=== PATIENT | female | born 1985 | race African-American/Black ===

== ENCOUNTER 2024-06-19 12:57 | Emergency (ER) | payer BC, OTHER ==
[~2024-06-19] VITALS: Ht 160 cm; Wt 79.0 kg
[~2024-06-19 12:57] MED LIST: SULF400T11
--- NOTE | 2024-06-19 13:11 | ED.PDOC ---
HPI Comments 38 year old female presents to the ED with chief complaint of palpitations. Patient reports that she has been on new medication Wellbutrin for weight loss along with Lisinopril for recent HTN that was induced by another medication. Patient relays that she started to experience heart palpitations/racing at around 11am today. Patient notes she is recovering from a recent total hysterectomy performed on 06/07. Patient denies any N/V/D, chest pain, SOB, dizziness, headache, fever, or chills. Time Seen by MD: 13:07 Primary Care Provider: BE Reviewed Notes: Nurses Notes, Medications, Allergies Allergies: Coded Allergies: NO KNOWN ALLERGIES (Unverified , 08/15/11) Home Meds Reported Medications Sulfamethoxazole-Trimethoprim (Bactrim) 1 Tab Tab 08/15/11 Information Source: Patient Mode of Arrival: Ambulatory Severity: Mild Timing: Hours Duration: Since onset Prehospital treatment: None Onset: At Rest Cardiac Risk Factors: HTN PE Risk Factors: None History of: None Associated Signs and Symptoms: Palpitations Past Medical History PAST MEDICAL HISTORY: HTN Surgical History: Hysterectomy 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 MECHANIC Hx Family History Family History: Reviewed,noncontributory to illness, Family hx of HTN Social History Smoker: Non-Smoker Alcohol: Occasionally Drugs: Denies Drug Use Lives In: Home Constitutional: denies: chills, diaphoresis, fatigue, fever, malaise, sweats, weakness, others EENTM: denies: blurred vision, double vision, ear bleeding, ear discharge, ear drainage, ear pain, ear ringing, eye pain, eye redness, hearing loss, mouth pain, mouth swelling, nasal discharge, nose bleeding, nose congestion, nose pain, photophobia, tearing, throat pain, throat swelling, voice changes, others Respiratory: denies: cough, hemoptysis, orthopnea, SOB at rest, shortness of breath, SOB with excertion, stridor, wheezing, others Cardiovascular: reports: palpitations; denies: chest pain, dizzy spells, diaphoresis, Dyspnea on exertion, edema, irregular heart beat, left arm pain, lightheadedness, PND, syncope, others Gastrointestinal: denies: abdomen distended, abdominal pain, blood streaked bowels, constipated, diarrhea, dysphagia, difficulty swallowing, hematemesis, melena, nausea, poor appetite, poor fluid intake, rectal bleeding, rectal pain, vomiting, others Genitourinary: denies: abnormal vagina bleeding, burning, dyspareunia, dysuria, flank pain, frequency, hematuria, incontinence, pain, , vagina discharg e, urgency, others Neurological: denies: dizziness, fainting, headache, left sided numbness, left sided weakness, numbness, paresthesia, pre-existing deficit, right sided numbness, right sided weakness, seizure, speech problems, tingling, tremors, weakness, others Musculoskeletal: denies: back pain, gout, joint pain, joint swelling, muscle pain, muscle stiffness, neck pain, others Integumetry: denies: bruises, change in color, change in hair/nails, dryness, laceration, lesions, lumps, rash, wounds, others Allergic/Immunocompromised: denies: Difficulty Healing, Frequent Infections, Hives, Itching, others Hematologic/Lymphatic: denies: anemia, blood clots, easy bleeding, easy bruising, swollen glands, others Endocrine: denies: excessive hunger, excessive sweating, excessive thirst, excessive urination, flushing, intolerance to cold, intolerance to heat, unexplained weight gain, unexplained weight loss, others Psychiatric: denies: anxiety, bipolar disorder, depression, hopeless, panic d isorder, schizophrenia, sleepless, suicidal, others All Other Systems: Reviewed and Negative Physical Exam General Appearance: No Apparent Distress HEENT: Normal ENT Inspection, Pharynx Normal, TMs Normal Neck: Full Range of Motion, Non-Tender, Normal, Normal Inspection Respiratory: Chest Non-Tender, Lungs Clear, No Accessory Muscle Use, No Respiratory Distress, Normal Breath Sounds Cardiovascular: No Edema, No JVD, No Murmur, No Gallop, Normal Peripheral Pulses, Regular Rate/Rhythm Breast Exam: Deferred Gastrointestinal: No Organomegaly, Non Tender, No Pulsatile Mass, Normal Bowel Sounds, Soft Genitalia: Deferred Pelvic: Deferred Rectal: Deferred Extremities: No calf tenderness, Normal capillary refill, Normal inspection, Normal range of motion, Non-tender, No pedal edema Musculoskeletal : Apperance: Normal Neurologic: Alert, recreation therapist II-XII nml as Tested, No Motor Deficits, Normal Affect, Normal Mood, No Sensory Deficits Cerebellar Function: Normal Reflexes: Normal Skin: Dry, Normal Color, Warm Lymphatic: No Adenopathy EKG EKG : Pulse Rate (adult): 107 E[place]hardt: Normal Cardiac Rhythm: ST Block: None ST: Nonsp Was a procedure done? Was a procedure done?: No CP Differential Dx Differential Diagnosis: Angina, IA, Pulmonary Embolus Differential Diagnosis: CHF Differential Diagnosis: Pericarditis X-Ray, Labs, Meds, VS Vital Signs Date Time Temp Pulse Resp B/P (MAP) Pulse Ox O2 Delivery O2 Flow Rate FiO2 06/19/24 15:30 98.7 98 17 98 98.7 06/19/24 15:30 98 16 98 Room Air 06/19/24 14:16 87 06/19/24 13:46 107 06/19/24 13:00 99.2 110 18 123/77 (92) 98 99.2 Lab Test 06/19/24 14:14 06/19/24 13:27 06/19/24 13:15 Range/Units Troponin I High Sensitivity 4 < 3 L </=34 ng/L White Blood Count 10.7 4.4-10.8 10^3/uL Red Blood Count 5.12 4.0-5.20 10^6/uL Hemoglobin 13.2 12.2-16.2 g/dL Hematocrit 41.7 36.0-46.0 % Mean Corpuscular Volume 81.5 80.0-100.0 fL Mean Corpuscular Hemoglobin 25.8 L 28.0-32.0 pg Mean Corpuscular Hemoglobin Concent 31.6 L 32.0-36.0 g/dL Red Cell Distribution Width 15.5 H 11.8-14.3 % Platelet Count 361 140-450 10^3/uL Mean Platelet Volume 7.9 6.9-10.8 fL Neutrophils (%) (Auto) 74.7 37.0-80.0 % Lymphocytes (%) (Auto) 18.7 10.0-50.0 % Monocytes (%) (Auto) 5.0 0.0-12.0 % Eosinophils (%) (Auto) 1.1 0.0-7.0 % Basophils (%) (Auto) 0.5 0.0-2.0 % Neutrophils # (Auto) 8.0 1.6-8.6 10 ^3/uL Lymphocytes # (Auto) 2.0 0.4-5.4 10 ^3/uL Monocytes # (Auto) 0.5 0-1.3 10 ^3/uL Eosinophils # (Auto) 0.1 0-0.8 10 ^3/uL Basophils # (Auto) 0.1 0-0.2 10 ^3/uL Nucleated Red Blood Cells 0.0 % D-Dimer, Quantitative 1.37 H 0.0-0.49 mg/L FEU Sodium Level 138 136-145 mmol/L Potassium Level 4.0 3.5-5.1 mmol/L Chloride Level 101 98-107 mmol/L Carbon Dioxide Level 27 20-31 mmol/L Anion Gap 10 5-15 Blood Urea Nitrogen 13 9-23 mg/dL Creatinine 0.72 0.550-1.02 mg/dL Glomerular Filtration Rate Calc 108 >90 mL/min BUN/Creatinine Ratio 18.1 10.0-20.0 Serum Glucose 95 74-106 mg/dL Calcium Level 10.4 8.7-10.4 mg/dL Magnesium Level 1.7 1.6-2.6 mg/dL Urine Color Colorless Yellow Urine Clarity Clear Clear Urine pH 6.5 5.0-9.0 Urine Specific [place] 1.008 1.001-1.035 Urine Protein Negative Negative Urine Ketones Negative Negative Urine Blood Trace H Negative /uL Urine Nitrite Negative Negative Urine Bilirubin Negative Negative Urine Urobilinogen Normal Negative mg/dL Urine Leukocyte Esterase 2+ Negative /uL Urine RBC <1 0 - 4 /hpf Urine Microscopic WBC 7 H 0-5 /HPF Urine Squamous Epithelial Cells Few <5 /hpf Urine Bacteria None seen None Seen /hpf Urine Yeast (Budding) Occasional None Seen /hpf Urine Glucose Normal Normal mg/dL Current Medications Medications (Trade) Dose Ordered Sig/Christian Route Start Time Stop Time Status Last Admin Sodium Chloride 1,000 ml @ 1,000 mls/hr Q1H ONCE IV 06/19/24 14:00 06/19/24 14:59 DC 06/19/24 15:25 CBC is within normal limits The D-dimer is elevated 1.37 The urine test is positive for UTI The patient was given IV normal saline at 1 L bolus Because of the elevated D-dimer we did a CAT scan of the chest to rule out PE and shows: IMPRESSION: 1. Limited by poor contrast opacification of the pulmonary arteries. 2. No large central pulmonary embolism. 3. No acute thoracic finding. 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 4. Subtle early arterial enhancement in the liver near the IVC of unclear significance. This could be further evaluated with MRI of the abdomen with c ontrast. HS:Y At this time, the patient was being discharged and will follow up with the primary care doctor The patient will return to the emergency department's condition worsens The patient was given a prescription of Cipro for the infection Images Reviewed?: Images reviewed and evaluated by me Time of 1ST Reevaluation: 16:38 Reevaluation 1ST: Improved Patient Education/Counseling: Diagnosis, Treatment, Prognosis, Need For Follow Up Family Education/Counseling: No Family Present Additional Information -Reviewed patient's previous visit(s): 08/15/11 for chest abscess - The following tests were ordered, and results were reviewed by me: CBC, BMP, Troponin, Magnesium, UA, D-Dimer - Additional information was gathered from interviewing the following ind ependent Historian: None - I reviewed and agreed with the following test results read by other provider: None - I discussed treatments and results with medical personnel and: patient Comprehensive systems review obtained and negative except for what is stated in the HPI. Departure 1 Departure Time of Disposition: 16:39 Impression: Primary Impression: Acute UTI Additional Impression: Palpitations Disposition: 01 HOME / SELF CARE / HOMELESS Condition: Fair Discharged With: Self Critical Care Note Critical Care Time?: No Stability Stability form required: No Heart Score Heart Score: Heart Score Response (Comments) Value History Moderate Suspicious 1 EKG Normal 0 Age <45 0 Risk Factors 1 or 2 risk factors 1 Troponin N/A 0 Total 2 I personally scribed for COMFORT PAYAN MD ([email or web address]) on 06/19/24 at 13:11. Electronically submitted by Jared Bradley ([email or web address]). COMFORT PAYAN MD Jun 19, 2024 13:11
[2024-06-19 13:35] LABS: Basophils # (auto) 0.1 10 ^3/uL (0-0.2); Eosinophils # (auto) 0.1 10 ^3/uL (0-0.8); Monocytes # (auto) 0.5 10 ^3/uL (0-1.3); White Blood Cell 10.7 10^3/uL (4.4-10.8)
[2024-06-19 13:36] LABS: Basophils % (auto) 0.5 % (0.0-2.0); Eosinophils % (auto) 1.1 % (0.0-7.0); Hematocrit 41.7 % (36.0-46.0); Hemoglobin 13.2 g/dL (12.2-16.2); Lymphocytes % (auto) 18.7 % (10.0-50.0); Mean Corpuscular Hemoglobin 25.8 pg (28.0-32.0); Mean Corpuscular Hgb Conc. 31.6 g/dL (32.0-36.0); Mean Corpuscular Volume 81.5 fL (80.0-100.0); Neutrophils % (auto) 74.7 % (37.0-80.0); Platelet Count (auto) 361 10^3/uL (140-450); Red Blood Cells 5.12 10^6/uL (4.0-5.20); Red Cell Distribution Width 15.5 % (11.8-14.3)
[2024-06-19 13:38] LABS: Urine Bacteria None Seen /hpf (None Seen)
[2024-06-19 13:44] LABS: Chloride 101 mmol/L (98-107); Sodium 138 mmol/L (136-145)
[2024-06-19 13:45] LABS: Anion Gap 10 (5-15); Carbon Dioxide 27 mmol/L (20-31)
[2024-06-19 13:46] LABS: Calcium 10.4 mg/dL (8.7-10.4)
[2024-06-19 13:47] LABS: Urine Blood TRACE /uL (Negative); Urine Budding Yeast OCCASIONAL /hpf (None Seen); Urine Clarity Clear (Clear); Urine Color Colorless (Yellow); Urine Protein, UAD Negative (Negative); Urine Specific Gravity 1.008 (1.001-1.035); Urine Squamous Epithelial Cell FEW /hpf (<5); Urine Urobilinogen Normal (Negative); Urine WBC 7 /HPF (0-5); Urine pH 6.5 (5.0-9.0)
[2024-06-19 13:50] LABS: BUN/Creatinine Ratio 18.1 (10.0-20.0); Blood Urea Nitrogen 13 mg/dL (9-23); Glucose 95 mg/dL (74-106)
[2024-06-19 13:51] LABS: Magnesium 1.7 mg/dL (1.6-2.6)
--- NOTE | 2024-06-19 14:18 | ECG ---
[facility] Test Date: 2024-06-19 Test Time: 14:16:39 Pat Name: BEN HANSON Department: ED Room: Gender: F Publicity Agent: SHANNON : 1985 Requested By: COMFORT PAYAN Order Number: [id number] Reading MD: Rajan Garcia Measurements Intervals [place] Rate: 87 P: 27 AR: 119 QRS: 83 QRSD: 94 T: 24 QT: 353 QTc: 425 Interpretive Statements Sinus rhythm Borderline short AR interval Borderline T abnormalities, anterior leads Baseline wander in lead(s) III,aVF Electronically Signed On 06-20-2024 20:55:33 PDT by Rajan Garcia Please click the below link to view image of tracing.
[2024-06-19] MEDS: SODIUM CHLORIDE 0.9% 1,000 ML IV ONE (15:25)
[2024-06-19] MEDS: IOHEXOL 350 MG/ML 100ML IJ ONE (16:03)
--- NOTE | 2024-06-19 16:27 | DVH ---
CTA Chest with intravenous contrast INDICATION: Palpitations COMPARISON: None TECHNIQUE: Multidetector spiral CTA of the chest was performed of the chest with intravenous contrast . PULMONARY ANGIOGRAPHY PROTOCOL was utilized using a bolus-tracking technique centered on the main p ulmonary artery. Axial, coronal and sagittal multiplanar and MIP reformats were performed. CONTRAST: Type of contrast: Omni 300 Contrast injected: 70 ml Radiation dose : Chest: CTDI volume is 21 mGy. Dose-length product is 708 mGy*cm The dose indicators for CT are the volume computed Tomography (CT) dose Index (CTDIvol) and the dose Length product (DLP), and are measured in units of mGy and mGy-cm, respectively. These indicators are not patient dose, but values generated from the CT scanner acquisition factors. The report includes radiation exposure data for exposures received during this examination. Findings: Pulmonary artery: Limited by poor contrast opacification of the pulmonary arteries. No large central or large segmental pulmonary embolism. Lower neck: Normal thyroid. Lungs: No focal consolidation, pleural effusion or pneumothorax. Heart/Vascular Structures: Normal heart size. No pericardial effusion. Lymph Nodes: No adenopathy Pleura: No pleural effusion or significant pneumothorax. Musculoskeletal: Deformity of the left 4th rib. Soft tissues: Normal. Upper abdomen: Subtle early arterial enhancement in the liver near the IVC. IMPRESSION: 1. Limited by poor contrast opacification of the pulmonary arteries. 2. No large central pulmonary embolism. 3. No acute thoracic finding. 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 4. Subtle early arterial enhancement in the liver near the IVC of unclear significance. This could be further evaluated with MRI of the abdomen with contrast. HS:Y
[2024-06-19] MEDS ORDERED: CIPR-173 PO (16:40)
[2024-06-19 16:58] VITALS: BP 126/68; PULSE 76; RESP 16; TEMP 98.7; O2SAT 97
--- NOTE | 2024-06-20 06:42 | ECG ---
[facility] Test Date: 2024-06-19 Test Time: 13:12:18 Pat Name: BEN HANSON Department: ER Room: Gender: F [place]ogs[place] Filler: GP : 1985 Requested By: COMFORT PAYAN Order Number: [id number] Reading MD: Rajan Garcia Measurements Intervals [place] Rate: 107 P: 71 HI: 105 QRS: 89 QRSD: 92 T: 10 QT: 316 QTc: 422 Interpretive Statements Sinus tachycardia Probable left atrial enlargement Borderline repolarization abnormality Baseline wander in lead(s) V1,V2 Electronically Signed On 06-20-2024 20:55:14 PDT by Rajan Garcia Please click the below link to view image of tracing.
== END 2024-06-19 17:49 | disposition home or self-care (01) ==
LOC: ER 12:57
DX: N39.0 Urinary tract infection, site not specified (principal); R00.2 Palpitations; I10 Essential (primary) hypertension; Z90.710 Acquired absence of both cervix and uterus
CPT/HCPCS: 36415; 71275; 80048; 81001; 83735; 84484; 85025; 85379; 93005; 96360; 96361; 99285; J7030; Q9967

== ENCOUNTER 2024-06-21 00:42 | Emergency (ER) | payer OTHER ==
[~2024-06-21] VITALS: Ht 160 cm; Wt 79.2 kg
[~2024-06-21 00:42] MED LIST changes: +CIPR-173 PO
[2024-06-21 01:16] LABS: Basophils # (auto) 0.1 10 ^3/uL (0-0.2); Eosinophils # (auto) 0.3 10 ^3/uL (0-0.8); Hemoglobin 12.5 g/dL (12.2-16.2); Lymphocytes # (auto) 4.5 10 ^3/uL (0.4-5.4); White Blood Cell 12.8 10^3/uL (4.4-10.8)
[2024-06-21 01:17] LABS: Basophils % (auto) 0.8 % (0.0-2.0); Eosinophils % (auto) 2.3 % (0.0-7.0); Hematocrit 38.3 % (36.0-46.0); Lymphocytes % (auto) 35.1 % (10.0-50.0); Mean Corpuscular Hemoglobin 26.3 pg (28.0-32.0); Mean Corpuscular Hgb Conc. 32.6 g/dL (32.0-36.0); Mean Corpuscular Volume 80.7 fL (80.0-100.0); Monocytes # (auto) 0.6 10 ^3/uL (0-1.3); Monocytes % (auto) 4.6 % (0.0-12.0); Neutrophils # (auto) 7.3 10 ^3/uL (1.6-8.6); Neutrophils % (auto) 57.2 % (37.0-80.0); Nucleated Red Blood Cells % 0.1 %; Platelet Count (auto) 359 10^3/uL (140-450); Red Blood Cells 4.75 10^6/uL (4.0-5.20); Red Cell Distribution Width 15.9 % (11.8-14.3)
--- NOTE | 2024-06-21 01:25 | DVH ---
CHEST RADIOGRAPH Indication: cp Technique: Single frontal view of the chest was obtained COMPARISON: None FINDINGS: Lines and Tubes: None Lungs: Clear Pleura: No effusion. No pneumothorax. Cardiomediastinal contours: Unremarkable Bones: Unremarkable IMPRESSION: No abnormality demonstrated.
--- NOTE | 2024-06-21 01:36 | ED.PDOC ---
History of Present Illness HPI Comments 38-year-old female came to ER due to palpitations. Patient was about to sleep about 45 minutes prior to arrival when she developed palpitations, dizziness and shortness of breath. Patient recently diagnosed with UTI 2 days ago and currently taking Ciprofloxacin. She had also recently been on bupropion which h as been discontinued Chief Complaint: Palpitations Time Seen by MD: 01:34 Primary Care Provider: kate Reviewed Notes: Nurses Notes Allergies: Coded Allergies: NO KNOWN ALLERGIES (Unverified , 08/15/11) Home Meds Active Scripts Ciprofloxacin Hcl (Cipro) 500 Mg Tab, 1 TAB PO BID, #14 TAB Prov:COMFORT PAYAN MD 06/19/24 Reported Medications Sulfamethoxazole-Trimethoprim (Bactrim) 1 Tab Tab 08/15/11 Mode of Arrival: Ambulatory Severity: Moderate Timing: Minutes Duration: Intermittent Review of Systems REVIEW OF SYSTEMS: No fever, no chills, or fatigue HEENT: No sore throat, no earache, no congestion, no neck pain. Cardiac: No chest pain.(+) palpitations, (+) dizziness Lungs: (+) shortness of breath, no cough. GI: No nausea, no vomiting, no diarrhea, no constipation, no abdominal pain : No dysuria, frequency, or urgency. No hematuria. Musculoskeletal: No joint pain , no joint swelling, no extremity edema. Skin: No rash, no itching. Neuro: No headache, no dizziness, no weakness Vital Signs Vital Signs Date Time Temp Pulse Resp B/P (MAP) Pulse Ox O2 Delivery O2 Flow Rate FiO2 06/21/24 05:15 97 Room Air* 0 21 06/21/24 05:15 97.8 71 20 117/84 (95) 97.8 Physical Exam General: Awake, alert and oriented. No acute distress. Skin: Skin in warm, dry and intact. Appropriate color for ethnicity. Nailbeds pink with no cyanosis. HEENT: The head is normocephalic and atraumatic. Conjunctivae are clear without exudates or hemorrhage. Sclera is non-icteric. EOM are intact. No signs of nystagmus. Eyelids are normal in appearance without swelling or lesions. Oral mucosa is pink and moist Neck: The neck is supple with normal range of motion. No JVD. Cardiac: Rapid rate , rhythm are normal. No murmurs, gallops, or rubs are auscultated. Respiratory: No signs of respiratory distress. Lung sounds are clear in all lobes bilaterally without rales, rhonchi, or wheezes. Abdominal: Abdomen is soft, non-tender without distention. Bowel sounds are present and normoactive in all four quadrants. Extremities: Upper and lower extremities are atraumatic in appearance without deformity or edema. Neurological: The patient is awake, alert and oriented to person, place, and time with normal speech. Speech is clear. There is no facial asymmetry. Psychiatric: Appropriate mood and affect. Good judgement and insight. No visual or auditory hallucinations. 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 Was a procedure done?: No EKG EKG : Pulse Rate (adult): 101 Cardiac Rhythm: ST Comments QTC 465 Differential Dx Considerations may include: Anemia, electrolyte imbalance, palpitations, shortness of breath, anxiety, cardiac dysrhythmia, pulmonary embolism, pneumonia, hypovolemia, dehydration, B rugada syndrome, other X-Ray, Labs, Meds, VS Vital Signs Date Time Temp Pulse Resp B/P (MAP) Pulse Ox O2 Delivery O2 Flow Rate FiO2 06/21/24 05:15 97 Room Air* 0 21 06/21/24 05:15 97.8 71 20 117/84 (95) 99 97.8 06/21/24 02:21 89 06/21/24 01:36 101 06/21/24 00:52 101 06/21/24 00:50 98.7 100 16 126/84 (98) 98 98.7 Lab Test 06/21/24 02:17 06/21/24 01:03 Range/Units Troponin I High Sensitivity < 3 L < 3 L </=34 ng/L White Blood Count 12.8 H 4.4-10.8 10^3/uL Red Blood Count 4.75 4.0-5.20 10^6/uL Hemoglobin 12.5 12.2-16.2 g/dL Hematocrit 38.3 36.0-46.0 % Mean Corpuscular Volume 80.7 80.0-100.0 fL Mean Corpuscular Hemoglobin 26.3 L 28.0-32.0 pg Mean Corpuscular Hemoglobin Concent 32.6 32.0-36.0 g/dL Red Cell Distribution Width 15.9 H 11.8-14.3 % Platelet Count 359 140-450 10^3/uL Mean Platelet Volume 7.9 6.9-10.8 fL Neutrophils (%) (Auto) 57.2 37.0-80.0 % Lymphocytes (%) (Auto) 35.1 10.0-50.0 % Monocytes (%) (Auto) 4.6 0.0-12.0 % Eosinophils (%) (Auto) 2.3 0.0-7.0 % Basophils (%) (Auto) 0.8 0.0-2.0 % Neutrophils # (Auto) 7.3 1.6-8.6 10 ^3/uL Lymphocytes # (Auto) 4.5 0.4-5.4 10 ^3/uL Monocytes # (Auto) 0.6 0-1.3 10 ^3/uL Eosinophils # (Auto) 0.3 0-0.8 10 ^3/uL Basophils # (Auto) 0.1 0-0.2 10 ^3/uL Nucleated Red Blood Cells 0.1 % Sodium Level 136 136-145 mmol/L Potassium Level 3.8 3.5-5.1 mmol/L Chloride Level 99 98-107 mmol/L Carbon Dioxide Level 28 20-31 mmol/L Anion Gap 9 5-15 Blood Urea Nitrogen 10 9-23 mg/dL Creatinine 0.81 0.550-1.02 mg/dL Glomerular Filtration Rate Calc 94 >90 mL/min BUN/Creatinine Ratio 12.3 10.0-20.0 Serum Glucose 92 74-106 mg/dL Calcium Level 9.9 8.7-10.4 mg/dL Total Bilirubin 0.2 0.2-1.0 mg/dL Aspartate Amino Transferase (AST) 24 13-40 U/L Alanine Aminotransferase (ALT) 26 7-40 U/L Alkaline Phosphatase 87 46-116 U/L B-Type Natriuretic Peptide 18.69 0-100 pg/mL Total Protein 8.0 5.7-8.2 g/dL Albumin 4.6 3.2-4.8 g/dL Time of 1ST Reevaluation: 01:27 Reevaluation 1ST: Unchanged Patient Education/Counseling: Diagnosis, Treatment Family Education/Counseling: No Family Present Departure 1 Departure Time of Disposition: 05:35 Impression: Primary Impression: Palpitations Disposition: 02 SHORT TERM HOSPITAL Condition: Stable Comments 38-year-old female with recurrent episodes of palpitations, shortness of breath and dizziness. Patient is seen and evaluated in this ED recently. Borderline e levated QTC on EKG. Discussed with Chinle Dr. Chauhan # [phone] who accepts patient for transfer to [facility]. Extensive evaluation was performed in attempt to identify or rule out: (See differential diagnosis section) The following tests were ordered, and results were reviewed by me and discussed with patient: (See diagnostic results section) The following test were independently interpreted by me: EKG, chest x-ray I reviewed and agreed with the following test results read by other providers: Chest x-ray I reviewed the following notes from the pt's past medical encounters: Recent ED visit this month for similar presentation Additional information was gathered from interviewing the following independent historians: N/A Discussion of management or test interpretation with external physician/other qualified health rn critical care: N/A Addressed an acute or chronic illness that poses a threat to life or bodily func tion: Palpitations Decision regarding hospitalization or escalation of hospital level of care: Risk and benefits of admission for further treatment of patient's condition was considered. Due to patient's current clinical condition, high risk of decline and poor outcome if discharged and need for further inpatient management and monitoring, patient will be admitted to the hospital. Discussed with patient. Drug therapy requiring intensive monitoring for toxicity: N/A Parenteral controlled substances: N/A Decision regarding elective major surgery with identified patient or procedure risk factors: N/A Decision regarding emergency major surgery: N/A Decision not to resuscitate or to de-escalate care because of poor prognosis: N/A Diagnosis or treatment significantly limited by social determinants of health: N/A Critical Care Note Critical Care Time?: No Stability Stability form required: No Heart Score Heart Score: Heart Score Response (Comments) Value History N/A 0 EKG N/A 0 Age N/A 0 Risk Factors N/A 0 Troponin N/A 0 Total 0 I personally scribed for MANDO AMADOR MD ([email or web address]) on 06/21/24 at 01:36. Electronically submitted by Bruno Carlisle ([facility]). MANDO AMADOR MD Jun 21, 2024 01:36
[2024-06-21 01:42] LABS: Alanine Aminotransferase 26 U/L (7-40); Albumin 4.6 g/dL (3.2-4.8); Alkaline Phosphatase 87 U/L (46-116); Anion Gap 9 (5-15); Aspartate Aminotransferase 24 U/L (13-40); BUN/Creatinine Ratio 12.3 (10.0-20.0); Blood Urea Nitrogen 10 mg/dL (9-23); Calcium 9.9 mg/dL (8.7-10.4); Carbon Dioxide 28 mmol/L (20-31); Chloride 99 mmol/L (98-107); Glucose 92 mg/dL (74-106); Potassium 3.8 mmol/L (3.5-5.1); Sodium 136 mmol/L (136-145)
[2024-06-21 01:43] LABS: Bilirubin, Total 0.2 mg/dL (0.2-1.0)
[2024-06-21 05:15] VITALS: O2SAT 97
[2024-06-21 05:45] VITALS: BP 119/84; PULSE 76; RESP 17; TEMP 98; O2SAT 98
--- NOTE | 2024-06-24 14:32 | ECG ---
[facility] Test Date: 2024-06-21 Test Time: 00:52:11 Pat Name: BEN HANSON Department: ED Room: Gender: F Dialysis Rn: TRUDY : 1985 Requested By: MANDO AMADOR Order Number: [id number] Reading MD: Rajan Garcia Measurements Intervals [place] Rate: 101 P: 55 [place]: 127 QRS: 86 QRSD: 90 T: 42 QT: 358 QTc: 465 Interpretive Statements Sinus tachycardia Electronically Signed On 06-26-2024 20:42:00 PDT by Rajan Garcia Please click the below link to view image of tracing.
== END 2024-06-21 06:13 | disposition short-term general hospital (02) ==
LOC: ER 00:42
DX: R00.2 Palpitations (principal); I10 Essential (primary) hypertension; Z90.710 Acquired absence of both cervix and uterus
CPT/HCPCS: 36415; 71045; 80053; 83880; 84484; 85025; 93005

== ENCOUNTER 2024-11-13 09:15 | Emergency (ER) | payer OTHER ==
[~2024-11-13] VITALS: Ht 160 cm; Wt 80.0 kg
[2024-11-13 09:25] VITALS: TEMP 98.5
--- NOTE | 2024-11-13 09:29 | ECG ---
[facility] Test Date: 2024-11-13 Test Time: 09:21:39 Pat Name: BEN HANSON Department: ED Room: Gender: F Access Coordinator: ABRAHAM : 1985 Requested By: ALANNA CHURCH Order Number: [id number] Reading MD: Rajan Garcia Measurements Intervals [place] Rate: 76 P: 44 [place]: 125 QRS: 88 QRSD: 94 T: 58 QT: 390 QTc: 439 Interpretive Statements Sinus rhythm Electronically Signed On 11-14-2024 17:02:35 PDT by Rajan Garcia Please click the below link to view image of tracing.
[2024-11-13] MEDS: LORazepam 0.5 MG TAB PO ONE (10:01)
--- NOTE | 2024-11-13 10:08 | ED.PDOC ---
HPI Comments This is a 39-year-old female with past medical history of hypertension and anxiety came to the hospital due to chest pain started 30 minutes before coming to the hospital. Pain is localized at left-sternal border, unprovoked, nonradiating, pressure-like, lasted for 5 minutes with no clear exacerbating or relieving factor. She also reports of palpitation, fatigue and burping. She has previous history of recurrent palpitation. She denies fever, cough, shortness of bed, or any recent sick contacts/chest pain. PMHx: Hypertension and anxiety (but patient is not taking any medicine for a nxiety) PSHx: Hysterectomy, due to bleeding and abnormal Pap smear/uterine fibroids Family history: Nonsignificant Social history: Denies smoking or any other drug use Home medication: Ozempic, metformin, and lisinopril Chief Complaint: Chest Pain Time Seen by MD: 09:18 Primary Care Provider: kate Reviewed Notes: Nurses Notes Allergies: Coded Allergies: NO KNOWN ALLERGIES (Unverified , 08/15/11) Home Meds Active Scripts Ciprofloxacin Hcl (Cipro) 500 Mg Tab, 1 TAB PO BID, #14 TAB Prov:COMFORT PAYAN MD 06/19/24 Reported Medications Sulfamethoxazole-Trimethoprim (Bactrim) 1 Tab Tab 08/15/11 Information Source: Patient Mode of Arrival: Ambulatory Severity: Mild Timing: Minutes Duration: Minutes Past Medical History PAST MEDICAL HISTORY: Anxiety, HTN, UTI'S Surgical History: Hysterectomy RADIATION ENGINEER History: Denies all RADIATION ENGINEER Hx Family History Family History: Reviewed,noncontributory to illness, Family hx of HTN Social History Smoker: Non-Smoker Alcohol: Occasionally Drugs: Denies Drug Use Lives In: Home Constitutional: denies: chills, diaphoresis, fatigue, fever, malaise, sweats, weakness, others EENTM: denies: blurred vision, double vision, ear bleeding, ear discharge, ear drainage, ear pain, ear ringing, eye pain, eye redness, hearing loss, mouth pain, mouth swelling, nasal discharge, nose bleeding, nose congestion, nose pain, photophobia, tearing, throat pain, throat swelling, voice changes, others Respiratory: denies: cough, hemoptysis, orthopnea, SOB at rest, shortness of breath, SOB with excertion, stridor, wheezing, others Cardiovascular: denies: chest pain, dizzy spells, diaphoresis, Dyspnea on exertion, edema, irregular heart beat, left arm pain, lightheadedness, palpitations, PND, syncope, others Gastrointestinal: denies: abdomen distended, abdominal pain, blood streaked bowels, constipated, diarrhea, dysphagia, difficulty swallowing, hematemesis, melena, nausea, poor appetite, poor fluid intake, rectal bleeding, rectal pain, vomiting, others Genitourinary: denies: abnormal vagina bleeding, burning, dyspareunia, dysuria, flank pain, frequency, hematuria, incontinence, pain, , vagina discharge, urgency, others Neurological: denies: dizziness, fainting, headache, left sided numbness, left sided weakness, numbness, paresthesia, pre-existing deficit, right sided numbness, right sided weakness, seizure, speech problems, tingling, tremors, weakness, others Musculoskeletal: denies: back pain, gout, joint pain, joint swelling, muscle pain, muscle stiffness, neck pain, others Integumetry: denies: bruises, change in color, change in hair/nails, dryness, laceration, lesions, lumps, rash, wounds, others Allergic/Immunocompromised: denies: Difficulty Healing, Frequent Infections, Hives, Itching, others Hematologic/Lymphatic: denies: anemia, blood clots, easy bleeding, easy bruising, swollen glands, others Endocrine: denies: excessive hunger, excessive sweating, excessive thirst, excessive urination, flushing, intolerance to cold, intolerance to heat, unexplained weight gain, unexplained weight loss, others Psychiatric: denies: anxiety, bipolar disorder, depression, hopeless, panic disorder, schizophrenia, sleepless, suicidal, others Physical Exam General Appearance: No Apparent Distress, Normal HEENT: Normal ENT Inspection, Pharynx Normal, TMs Normal Neck: Full Range of Motion, Non-Tender, Normal, Normal Inspection Respiratory: Chest Non-Tender, Lungs Clear, No Accessory Muscle Use, No Respiratory Distress, Normal Breath Sounds Cardiovascular: No Edema, No JVD, No Murmur, No Gallop, Normal Peripheral Pulses, Regular Rate/Rhythm Breast Exam: Deferred Gastrointestinal: No Organomegaly, Non Tender, No Pulsatile Mass, Normal Bowel Sounds, Soft Genitalia: Deferred Pelvic: Deferred Rectal: Deferred Extremities: No calf tenderness, Normal capillary refill, Normal inspection, Normal range of motion, Non-tender, No pedal edema Neurologic: Alert, post splitter II-XII nml as Tested, No Motor Deficits, Normal Affect, Normal Mood, No Sensory Deficits Cerebellar Function: Normal Reflexes: Normal Skin: Dry, Normal Color, Warm Lymphatic: No Adenopathy EKG EKG : Comments Sinus rhythm with no significant ST or T-wave changes. Was a procedure done? Was a procedure done?: No CP Differential Dx Differential Diagnosis: Other (Anxiety) Comment Anxiety attack Panic attack X-Ray, Labs, Meds, VS Vital Signs Date Time Temp Pulse Resp B/P (MAP) Pulse Ox O2 Delivery O2 Flow Rate FiO2 11/13/24 10:06 74 18 98 Room Air 11/13/24 10:06 74 18 112/81 (91) 98 11/13/24 09:25 98.5 79 15 97/66 98 98.5 11/13/24 09:21 76 Current Medications Medications (Trade) Dose Ordered Sig/Christian Route Start Time Stop Time Status Last Admin Lorazepam (Ativan Tablet) 0.5 mg ONCE ONCE PO 11/13/24 10:00 11/13/24 10:01 DC 11/13/24 10:01 Time of 1ST Reevaluation: 09:40 Reevaluation 1ST: Improved Time of 2ND Reevaluation: 10:00 Reevaluation 3RD: Improved Patient Education/Counseling: Diagnosis, Treatment, Prognosis, Need For Follow Up Family Education/Counseling: No Family Present Comments Patient came to the hospital due to chest pain and palpitation. Upon hospital arrival, chest pain and palpitation had improved, and the patient had no active complaint. Vitals were within normal limits. EKG performed, showed normal sinus rhythm with no no significant ST or T-wave changes. Physical examination was unremarkable Patient was given 0.5 mg Ativan On subsequent checkup, patient was feeling better, and patient discharged home Follow up with PCP SEPSIS Sepsis Screen Date sepsis recognized/suspect: Nov 13, 2024 Time Sepsis recognized/suspect: 925 Recent Procedure: No On Antibiotic Therapy: No Respiratory Rate >20: No Heart Rate >90: No Temp<36 C (96.8 F) or >38.3 C: No SBP <90 or MAP <65 mmHG: No New Acute Mental Status Change: No Is the patient on CPAP, BIPAP,: No Physician Orders Electrocardigram (11/13/24 10:27) Electrocardigram (11/13/24 12:27) Vital Signs Date Time Temp Pulse Resp B/P (MAP) Pulse Ox O2 Delivery O2 Flow Rate FiO2 11/13/24 10:06 74 18 98 Room Air 11/13/24 10:06 74 18 112/81 (91) 98 11/13/24 09:25 98.5 79 15 97/66 98 98.5 11/13/24 09:21 76 Medications Medications Dose Ordered Sig/Christian Route Start Time Stop Time Status Last Admin Dose Admin Lorazepam 0.5 mg ONCE ONCE PO 11/13/24 10:00 11/13/24 10:01 DC 11/13/24 10:01 Departure 1 Departure Time of Disposition: 10:30 Impression: Primary Impression: Chest pain Additional Impressions: Anxiety Paroxysmal SVT (supraventricular tachycardia) Disposition: 01 HOME / SELF CARE / HOMELESS Condition: Fair Additional Instructions: Follow up with the global logistics manager for possible another Holter monitor e-Prescriptions Atenolol (Atenolol) 25 Mg Tab 1 TAB PO DAILY for 30 Days, #30 TAB 5 Refills Prov: RADHA HINDS MD 11/13/24 Critical Care Note Critical Care Time?: No Stability Stability form required: No Heart Score Heart Score: Heart Score Response (Comments) Value History Slightly Suspicious 0 EKG Normal 0 Age <45 0 Risk Factors 1 or 2 risk factors 1 Troponin N/A 0 Total 1 ALANNA CHURCH RESDIENT Nov 13, 2024 10:08 RADHA HINDS MD Nov 13, 2024 11:30
[2024-11-13] MEDS ORDERED: ATEN-60 PO (11:29)
[2024-11-13 12:32] VITALS: BP 92/69; PULSE 91; RESP 18; O2SAT 100
== END 2024-11-13 12:36 | disposition home or self-care (01) ==
LOC: ER 09:15
DX: I47.10 Supraventricular tachycardia, unspecified (principal); F41.9 Anxiety disorder, unspecified; I10 Essential (primary) hypertension; Z87.440 Personal history of urinary (tract) infections; Z90.710 Acquired absence of both cervix and uterus
CPT/HCPCS: 93005